=== PATIENT | female | born 1960 | race Caucasian/White ===

== ENCOUNTER 2016-10-18 07:16 | Day surgery (SDC) | payer MEDICARE, OTHER ==
[~2016-10-18] VITALS: Ht 162.6 cm; Wt 79.5 kg
[~2016-10-18 07:16] MED LIST: LACTATED RINGERS 1,000 ML IV SCH; LIDOCAINE 4% TOPICAL 4.5 ML SYR ONE; META800T PO; OXC10TCR PO; OXYC1TAB7 PO; SIMETHICONE 40 MG/0.6 ML (MYLICON DROPS) ORAL SYRINGE ONE; SODIUM CHLORIDE FLUSH 3 ML SYR IV PRN; TRAZ300T3 PO
[2016-10-18 07:44] VITALS: BP 146/85
[2016-10-18] MEDS ORDERED: PANT40TA3 PO (08:13)
[2016-10-18] MEDS ORDERED: CYCL10TA45 PO (08:13)
[2016-10-18 08:19] VITALS: BP 131/72
[2016-10-18] MEDS ORDERED: MIDAZOLAM 2 MG/2 ML (VERSED) VIAL ONE (08:55)
[2016-10-18] MEDS ORDERED: ALFENTANIL 500 MCG/ML (ALFENTA) 5 ML AMP IV ONE (08:55)
[2016-10-18] MEDS ORDERED: PROPOFOL 40 ML IV ONE (08:56)
[2016-10-18 10:31] VITALS: BP 115/48
[2016-10-18 10:55] VITALS: BP 144/68
--- NOTE | 2016-10-18 13:16 | OPERATIVE REPORT ---
DATE OF OPERATION: 10/18/2016 PRE-OPERATIVE DIAGNOSIS: Anemia and epigastric pain POST-OPERATIVE DIAGNOSIS: 1. Antral gastric ulcer. 2. Normal colon. OPERATIVE PROCEDURE: 1. Esophagogastroduodenoscopy with biopsy 2. Total colonoscopy. SURGEON: Mauro Hall MD ANESTHESIA: IV conscious sedation and topical anesthetic with Monitored Anesthesia Services POSITION: Semi-recumbent slight left rotation for upper endoscopy and left lateral decubitus for colonoscopy ESTIMATED BLOOD LOSS: Minimal FINDINGS: 1. Small antral gastric ulcer with smooth edges that were not heaped up. No active bleeding. 2. Normal primary upper exam otherwise. 3. Normal colon. 4. Poor colon prep. OPERATIVE NOTE: Following satisfactory induction of analgesia, a bite block was inserted per os. The gastroscope was inserted through the bite block into the oropharynx. The pharynx, larynx and vocal cords, appeared normal. The patient was allowed to swallow the scope, which was advanced through the esophagus, stomach and duodenum to the third potion, including retroflexed view of the gastric fundus. [employer] photographs were obtained. The patient was noted to have a normal appearing esophagus with a normal Z-line at 38 cm. The stomach appeared normal except for mild inflammation of the gastric antrum with an associated oblong ulcer just proximal to the pyloric channel on a greater curve side. The margins appeared smooth and were not heaped up. There was no active bleeding. The duodenal bulb and duodenum appeared normal. Using cold biopsy forceps, separate biopsies of the duodenal mucosa, gastric antrum, and the peripheral margin of the gastric ulcer were obtained. These were submitted separately to pathology. Good hemostasis was noted at the biopsy sites. The above areas were again carefully inspected. Excess CO2 was evacuated and the scope removed. Next a digital rectal exam was performed revealing normal sphincter tone with no palpable rectal mass. The colonoscope was introduced per rectum and advanced under CO2 insufflation and direct vision to the cecum. The cecum was identified by convergence of the tenia, the ileocecal valve and palpation/transillumination of the right lower quadrant. Attempts to intubate the terminal ileum were unsuccessful. There were several pools of liquid stool that required extensive suction and irrigation to clear, however, adequate view of colonic mucosa was obtained. No mucosal abnormalities were noted. The above areas again were carefully inspected as the scope was slowly withdrawn. Retroflexed view in the rectum was normal. Excess insufflated CO2 was evacuated and the scope removed. The patient tolerated the procedure well and transferred to recovery in stable condition. RECOMMENDATIONS: We will increase the patient's proton pump inhibitor medication to twice a day and add Carafate daily for a 2-week course. The patient is advised to stop any nonsteroidal medications and alcohol. The patient should then follow up with her primary care physician. She is advised regarding a need for follow up endoscopy to confirm healing in 2 to 3 months.
== END 2016-10-18 11:11 | disposition home or self-care (01) ==
LOC: ASC 07:16
PROVIDERS: ATTEND Surgery
DX: D64.9 Anemia, unspecified (principal); K25.9 Gastric ulcer, unspecified as acute or chronic, without hemorrhage or perforation; K29.50 Unspecified chronic gastritis without bleeding; R10.9 Unspecified abdominal pain; R13.10 Dysphagia, unspecified; K21.9 Gastro-esophageal reflux disease without esophagitis; G89.29 Other chronic pain; J45.909 Unspecified asthma, uncomplicated; Z86.010 Personal history of colon polyps
CPT/HCPCS: 43239; 45378; A9270; J2250; J7120; 87077; 88305; 88312